=== PATIENT | female | born 1975 | race Caucasian/White ===

== ENCOUNTER 2018-04-23 11:48 | Outpatient (CLI) | payer BC ==
[~2018-04-23 11:48] MED LIST: DCS100C PO; FLUC200T45 PO; FRS325T PO; IBP800T PO; OXYC-272 PO; PREN1TAB39 PO
--- NOTE | 2018-04-23 12:00 | NUR ---
AJIT GLYNN presented to unit via AMB from HOME, accompanied by SPOUSE AND CHILD, FOR RHOGAM INJECTION AT 28 WEEKS. TO WAITING ROOM UNTIL RHOGAM READY.
--- NOTE | 2018-04-23 12:40 | NUR ---
RHOGAM 1 VIAL GIVEN IM IN RIGHT VG SITE. SITE CLEAR. DISMISSED AMB FROM WS IN STABLE CONDITION ACC BY SPOUSE AND DAUGHTER.
== END 2018-04-23 12:45 | disposition home or self-care (01) ==
LOC: WSo 11:48
PROVIDERS: ATTEND Obstetrics & Gynecology
DX: Z31.82 Encounter for Rh incompatibility status (principal)
CPT/HCPCS: 96372

== ENCOUNTER 2018-06-20 14:41 | Inpatient (IN) | payer BC ==
[~2018-06-20] VITALS: Ht 179.1 cm; Wt 75.5 kg
--- NOTE | 2018-06-20 14:30 | NUR ---
AJIT GLYNN Carlos presented to unit via AMBULATORY FROM OFFICE, accompanied by , with c/o CONTRACTIONS. AJIT GLYNN weighed, gowned, voided, and to bed. EFHM and TOCO applied, VS taken. AJIT GLYNN oriented to bed controls, call light, TV, heat, and A/C controls.
[2018-06-20 14:45] VITALS: BP 128/90
[2018-06-20 15:00] VITALS: BP 108/68
[2018-06-20] MEDS ORDERED: D5 LR IV SOLUTION 1,000 ML IV SCH (15:00)
[2018-06-20 15:11] LABS: BASOPHILS % (AUTO) 0 % (0-10); EOSINOPHILS # (AUTO) 0.1 10^3/uL (0.0-0.3); EOSINOPHILS % (AUTO) 1 % (0-10); HEMATOCRIT 29 % (35-52); HEMOGLOBIN 9.7 G/DL (11.5-16.0); LYMPHOCYTES # (AUTO) 1.3 X 10^3 (1.0-4.0); LYMPHOCYTES % (AUTO) 14 % (12-44); MEAN CORPUSCULAR HEMOGLOBIN 27 PG (25-34); MEAN CORPUSCULAR HGB CONC 33 G/DL (32-36); MEAN CORPUSCULAR VOLUME 80 FL (80-99); MEAN PLATELET VOLUME 9.9 FL (7.4-10.4); MONOCYTES # (AUTO) 0.6 X 10^3 (0.0-1.0); MONOCYTES % (AUTO) 7 % (0-12); NEUTROPHILS # (AUTO) 7.3 X 10^3 (1.8-7.8); NEUTROPHILS % (AUTO) 78 % (42-75); PLATELET COUNT 142 10^3/uL (130-400); RED CELL DISTRIBUTION WIDTH 14.2 % (10.0-14.5); WHITE BLOOD COUNT 9.3 10^3/uL (4.3-11.0)
--- NOTE | 2018-06-20 15:22 | NUR ---
DR SEGURA CALLED BY THIS RN WITH UPDATED PT REPORT. INITIAL ORDERS RECEIVED EARLIER BEFORE PT ARRIVAL, WITH NOTIFICATION OF ARRIVAL. THIS RN UPDATES ON REPORT: LAB RESULTS, UC IRREGULAR 2-10 MIN APART, PT STATING THAT THEY HAVE DEFINITELY SLOWED DOWN SINCE SHE HAS GOTTEN HERE. REPORT ON FHT STRIP, REACTIVE, GOOD/MODERATE VARIABILITY WITH ACCELS. RN GIVES REPORT ON URINE DIP RESULTS WELL. DR SEGURA WANTS TO CONTINUE ADMIN IV FLUIDS. WILL COME EVALUATE PT AFTER CLINIC THIS AFTERNOON- STATES HE HAS ABOUT 4-5 MORE PTS TO SEE AT THIS TIME. NO NEW ORDERS RECEIVED AT THIS TIME.
[2018-06-20 15:34] LABS: BAND NEUTROPHILS 0 %; BASOPHILS % (MANUAL) 0 %; EOSINOPHILS % (MANUAL) 0 %; LYMPHOCYTES % (MANUAL) 16 %; MONOCYTES % (MANUAL) 3 %; NEUTROPHILS % (MANUAL) 81 %; RBC MORPH NORMAL
--- NOTE | 2018-06-20 17:00 | NUR ---
rn having difficulty monitoring UC with TOCO, have readjusted several times. pt given marker button to push when uc begins
--- NOTE | 2018-06-20 17:35 | NUR ---
THIS RN CALLED DR SEGURA WITH UPDATED PT REPORT. UC PATTERN 3-6 MIN IRREGULAR. REACTIVE FHT. NO NEW ORDERS AT THIS TIME. DR SEGURA STATES HE WILL BE UP TO LD SHORTLY TO SEE PT.
--- NOTE | 2018-06-20 17:46 | NUR ---
DR SEGURA AT BEDSIDE ASSESSING PT. THIS RN UPDATES ON PT REPORT. REVIEWS FHT STRIP AND UC PATTERN. CALLS FOR C/S. THIS RN WILL CALL [facility] TO GET OR CREW AND CHAIN PULLER.
[2018-06-20] MEDS ORDERED: CITRIC ACID/SOB CIT (BICITRA) 30 ML UDC PO ONE (18:00)
[2018-06-20] MEDS ORDERED: METOCLOPRAMIDE INJ 10 MG/2 ML (REGLAN) IV ONE (18:00)
[2018-06-20] MEDS ORDERED: FAMOTIDINE 20MG/2ML IV (PEPCID) IV ONE (18:00)
[2018-06-20] MEDS ORDERED: CATHETER FLUSH 10 ML SYR IV PRN (18:00)
--- OUTSIDE RECORDS SUMMARY | 2018-06-20 18:05 | XMS REPORT ---
Author Author Migration, Doctor Organization [facility] Address Unknown Phone Unavailable Care Team Providers Care Supervisor Steffen House Name Role Phone Migration, Doctor Unavailable Unavailable PROBLEMS Type Condition ICD9-CM Code [id number] Code Onset Dates Condition Status SNOMED Code Problem Unspecified sleep disturbance 780.50 Active 21484900 Problem Influenza with other respiratory manifestations 487.1 Active 5086093 Problem Screening examination for pulmonary tuberculosis V74.1 Active 764449070 Problem Barotrauma, otitic 993.0 Active [id number] ALLERGIES No Information ENCOUNTERS Encounter Location Date Diagnosis [facility] [place] [id number], [place] [address] 14 Jun, 2014 [facility] [place] [id number] [place] [address] Jun, [facility] [place] [id number], [place] [address] Jun, [facility] [place] [id number] [address] Jun, [facility] [place] [address], [place] [address] Jun, [facility] [place] [address], [place] [address] Mar, [facility] [place] [address], [place] [address] Mar, [facility] [place] [id number] [address] Feb, [facility] [place] [id number] [place] [address] Feb, [facility] [place] [address], [place] [address] Feb, [facility] [place] [id number], [place] [address] Feb, [facility] [place] [address], [place] [address] Jan, [facility] [place] [address], [place] [address] Jan, [facility] [place] [address], [place] [address] Aug, [facility] [place] [address], [place] [address] Aug, [facility] [place] [address] [address] Jan, [facility] [place] [address], [place] [address] Dec, IMMUNIZATIONS No Known Immunizations SOCIAL HISTORY Never Assessed REASON FOR VISIT EMR-[facility] PLAN OF CARE VITAL SIGNS MEDICATIONS Medication Instructions Dosage Frequency Start Date End Date Duration Status Tamiflu 75 mg 1 capsule by Oral route 2 times per day for 5 day(s)drink plenty of fluids- Mar, Active Zofran ODT 4 mg take [address] on top of the tongue where it will dissolve, then swallow by Oral route every 8 hoursPRNNausea or Vomiting Mar, Active Ambien CR 6.25 mg take 1 tablet (6.25 mg) by oral route once daily at bedtime Jun, Active Naproxen 500 mg 1 tablet by Oral route 2 times per dayPRNpain, take with food Aug, Active tramadol 50 mg take 1 tablet to 2 tabs by Oral route every 8 hours as neededPRNpain Feb, Active Ativan 0.5 mg 1 tablet by Oral route every 8 hours PRN take prn for anxiety Jun, Active Albuterol Sulfate 2.5 mg /3 mL (0.083 %) 1 Each by Inhalation route every 6 hours for cough and wheezePRNfor wheezing or cough Mar, Active RESULTS No Results PROCEDURES No Known procedures INSTRUCTIONS MEDICATIONS ADMINISTERED No Known Medications
--- OUTSIDE RECORDS SUMMARY | 2018-06-20 18:05 | XMS REPORT ---
Author Author Giorgi Epps [facility] Address [address] [place], [place] [id number] Care Team Providers Care Gear Machinist Name Role Phone Giorgi Epps PCP Allergies and Adverse Reactions Name Reaction Notes No known drug allergy Plan of Treatment Not available. Medications Active Name Start Date Estimated Completion Date SIG Comments biotin oral Take 1 daily, OTC multivitamin oral tablet take 1 tablet by oral route daily ibuprofen 800 mg oral tablet take 1 tablet (800 mg) by oral route 4 times per day with food Bactrim DS 800-160 mg oral tablet 04/28/2017 take 1 tablet by oral route every 12 hours for 10 days Problem List Description Status Onset Cellulitis Active 04/29/2017 Vital Signs Date Time BP-Sys(mm[Hg] BP-Anju(mm[Hg]) HR(bpm) RR(rpm) Temp WT HT HC BMI BSA BMI Percentile O2 Sat(%) 04/28/2017 11:36:00 AM 129 mmHg 88 mmHg 92 bpm 20 rpm 98 F 144 lbs 71 in 20.08 kg/m2 1.81 m2 Social History Name Description Comments Tobacco Never smoker Alcohol Never History of Procedures Not available. Results Summary Not available. History Of Immunizations Not available. History of Past Illness Name Date of Onset Comments No significant medical history Cellulitis 04/29/2017 Cellulitis Apr 28 2017 11:47AM Payers Insurance Name Company Name Plan Name Plan Number Policy Number Policy Group [id number] History of Encounters Visit Date Visit Type Provider 04/28/2017 Procedures Giorgi Epps DO
[2018-06-20] MEDS ORDERED: OXYTOCIN/NORMAL SALINE 500 ML IV SCH (18:09)
[2018-06-20] MEDS ORDERED: metroNIDAZOLE 500MG/100ML IVPB 100 ML IV ONE (18:15)
[2018-06-20] MEDS ORDERED: TETANUS,DIPTH,PERTUSS P/F (BOOSTRIX) 0.5 ML VIAL IM SCH (18:15)
[2018-06-20] MEDS ORDERED: ONDANSETRON 4 MG/2 ML (SDV) Z0FRAN IVP PRN (18:15)
[2018-06-20] MEDS ORDERED: MEASLES,MUMPS,RUBELLA 1 EA INJ SC SCH (18:15)
[2018-06-20] MEDS ORDERED: ceFAZolin INJECTION 2,000 MG in WATER (STERILE) FOR INJECTION 10 ML IV ONE (18:15)
[2018-06-20] MEDS ORDERED: fentaNYL INJECTION 100 MCG/2 ML AMP ONE (18:21)
--- NOTE | 2018-06-20 18:23 | History & Physical ---
History and Physical Date Seen by Provider: Jun 20, 2018 Time Seen by Provider: 18:18 This patient is a 42-year-old 1 white female currently at 37 weeks gestation. She was seen in my clinic with complaint of severe and progressively increasing pain. She denied ruptured membranes or bleeding. She' s had 2 deliveries at and one at 38 weeks gestation. She indicates that this is what it felt like when she was in labor. She is being followed for oligohydramnios. She is planning on a repeat delivery. She has been hydrated and her contractions initially slowed down but now her initial level and/or worse per patient. Decision made to proceed with repeat C- section. NST performed in my clinic was reassuring except for early D cells with contractions. Patient complained of increased pain across the suprapubic pubis at the height of contractions. Allergies are none Medications are vitamins Medical social and surgical histories are per the antepartum record HEENT exam is normal Neck is supple no lymphadenopathy no thyromegaly Abdomen is gravid soft nontender nondistended. Fundal height is low for gestational age Extremities show no clubbing or cyanosis. There is no Homans sign. There is some pretibial pitting edema more on the left than on the right . Pelvic exam shows cervix that was closed and 70 percent effaced Laboratory Tests Test 06/20/18 15:00 Range/Units White Blood Count 9.3 4.3-11.0 10^3/uL Red Blood Count 3.64 L 4.35-5.85 10^6/uL Hemoglobin 9.7 L 11.5-16.0 G/DL Hematocrit 29 L 35-52 % Mean Corpuscular Volume 80 80-99 FL Mean Corpuscular Hemoglobin 27 25-34 PG Mean Corpuscular Hemoglobin Concent 33 32-36 G/DL Red Cell Distribution Width 14.2 10.0-14.5 % Platelet Count 142 130-400 10^3/uL Mean Platelet Volume 9.9 7.4-10.4 FL Neutrophils (%) (Auto) 78 H 42-75 % Lymphocytes (%) (Auto) 14 12-44 % Monocytes (%) (Auto) 7 0-12 % Eosinophils (%) (Auto) 1 0-10 % Basophils (%) (Auto) 0 0-10 % Neutrophils # (Auto) 7.3 1.8-7.8 X 10^3 Lymphocytes # (Auto) 1.3 1.0-4.0 X 10^3 Monocytes # (Auto) 0.6 0.0-1.0 X 10^3 Eosinophils # (Auto) 0.1 0.0-0.3 10^3/uL Basophils # (Auto) 0.0 0.0-0.1 10^3/uL Neutrophils % (Manual) 81 % Lymphocytes % (Manual) 16 % Monocytes % (Manual) 3 % Eosinophils % (Manual) 0 % Basophils % (Manual) 0 % Band Neutrophils 0 % Blood Morphology Comment NORMAL Assessment and plan 37 week gestation patient with 2 deliveries to appears to be in labor. Is concerning that she has had a for her last delivery decision is made to go ahead with repeat delivery now rather than tocolyse her for use pain medication for discomfort. heart rate tracing is reassuring but there have been early D cells and there is concern for uterine scar dehiscence 37 week gestation in labor with previous Allergies and Home Medications Allergies Coded Allergies: No Known Drug Allergies (Verified , 06/27/07) Home Medications Docusate Sodium 100 Mg Capsule, 100 MG PO BID, (Reported) Ferrous Sulfate 325 Mg Tablet, 1 TAB PO DAILY, (Reported) FOR 1 MONTH OR LONG YOU BREAST FEED Fluconazole 200 Mg Tablet, 1 EACH PO QOD FOR 3 DOSES, (Reported) EVERY OTHER DAY FOR 3 DOSES Ibuprofen 800 Mg Tab, 800 MG PO Q6H PRN, (Reported) NEEDED FOR CRAMPS Oxycodone Hcl/Acetaminophen 1 Tab Tablet, 1-2 TAB PO Q3H PRN, (Reported) NEEDED FOR PAIN Vits W-Ca,Fe,Fa(<1MG) 1 Each Tablet, 1 TAB PO DAILY, (Reported) FOR 1 MONTH OR LONG YOU BREAST FEED Patient Home Medication List Home Medication List Reviewed: Yes LAZARO SEGURA MD Jun 20, 2018 18:23
[2018-06-20] MEDS ORDERED: OXYC1TAB12 PO (18:25)
[2018-06-20] MEDS ORDERED: IBUP-1780 PO (18:25)
[2018-06-20] MEDS ORDERED: DOCU100C37 PO (18:25)
--- NOTE | 2018-06-20 18:27 | Discharge Instructions ---
Discharge Instructions Discharge Medications New, Converted or Re-Newed RX: RX on Chart Patient Instructions Patient Instructions: As directed Return to The Hospital For: As directed Activity & Diet Discharge Diet: No Restrictions Activity as Tolerated: No Orders-Post D/C & Referrals Follow Up Appt: RTC 1 week for incision check. Call to make follow up appt. for patient in 4 weeks. Wound Care: Remove angelia, apply benzoin and steri strips. Activity Per routine post instructions. Diet as tolerated Patient may shower or tub bathe as desired. Continue home meds LAZARO SEGURA MD Jun 20, 2018 18:27
[2018-06-20] MEDS ORDERED: OXYTOCIN/NORMAL SALINE 500 ML IV ONE ×2 (19:00→19:08)
[2018-06-20] MEDS ORDERED: ONDANSETRON 4 MG/2 ML (SDV) Z0FRAN ONE (19:00)
[2018-06-20] MEDS ORDERED: PHENYLEPHRINE 100 MCG/ML 10 ML (ANESTHESIA) SYR ONE (19:22)
[2018-06-20] MEDS ORDERED: ONDANSETRON 4 MG/2 ML (SDV) Z0FRAN IV PRN (19:30)
[2018-06-20] MEDS ORDERED: NALOXONE 0.4 MG/ML 1 ML (NARCAN) VIAL IV PRN (19:30)
[2018-06-20] MEDS ORDERED: diphenhydrAMINE 50 MG/ML INJ (BENADRYL) IV PRN (19:30)
[2018-06-20] MEDS ORDERED: PHYTONADIONE (VIT. K) NEONATAL 1 MG/0.5 ML AMP ONE (19:33)
[2018-06-20] MEDS: KETOROLAC 30 MG/ML VIAL IV SCH (19:40)
--- NOTE | 2018-06-20 20:20 | NUR ---
PT RECEIVED FROM RECOVERY. ASSESSMENT COMPLETED. PT DENIES ANY NEEDS AT THIS TIME. WILL CONTINUE TO MONITOR.
[2018-06-20 21:00] VITALS: BP 125/66
--- NOTE | 2018-06-20 22:32 | NUR ---
PT UP TO W'C AND TAKEN TO [facility] TO SEE NB.
[2018-06-20 23:00] VITALS: BP 130/76
--- NOTE | 2018-06-21 00:10 | OPERATIVE REPORT ---
DATE OF SERVICE: 06/20/2018 PREOPERATIVE DIAGNOSIS: Term at 37 weeks gestation and labor with oligohydramnios and severe abdominal pain. POSTOPERATIVE DIAGNOSIS: Term at 37 weeks gestation and labor with oligohydramnios and severe abdominal pain with pathology on the placenta pending. OPERATIVE PROCEDURE: Repeat low transverse delivery of a viable male infant with Apgars of 5 and 7 at 1 and 5 minutes respectively, weight of 5 pounds 15 ounces. Cord blood pH of 7.33 and a time of 19:05. OPERATIVE DESCRIPTION: With the patient in the supine position under satisfactory spinal analgesia, the patient was prepped and draped in usual fashion for abdominal surgery. Colon catheter was placed in the urinary bladder. A repeat Pfannenstiel incision was made through skin with a scalpel by removing the patient's previous Pfannenstiel incisional scar. The abdomen was entered in the usual manner. Bladder retractor placed into position and clean scalpel was used to make a 4 cm hysterotomy incision transversely across lower uterine segment that was extended by blunt dissection as well. The lower uterine segment was exceedingly thin. The period at least a third of the scar and although the membranes and peritoneum were intact Membranes were ruptured with an Allis clamp releasing a small amount of amniotic fluid. Stephen forceps were applied to facilitate the delivery of a male with stats as noted above. The was bulb suctioned on delivery of the head and again on completion of delivery. The umbilical cord was doubly clamped and cut and the passed to the pediatric nurse in attendance for delivery. Cord bloods were obtained. The placenta delivered spontaneously Marcos. It was normal, although somewhat bilobed, but had a 3-vessel cord. It was sent to pathology for permanent section. The uterus was exteriorized and interior wiped clean with a wet laparotomy sponge. Uterine incision then closed with a running locked suture of 2-0 Vicryl. Hemostasis was satisfactory. The uterus was returned to the abdominal cavity. All blood clot and debris removed from the abdominal cavity. With sponge, needle counts correct and hemostasis assured, the anterior parietal peritoneum was closed with running suture of 2-0 Vicryl. Rectus muscles were closed with 2-0 Vicryl. The rectus fascia was closed with 2-0 Vicryl, subcutaneous tissue was closed with 2-0 Vicryl and the skin was stapled. Sponge and needle counts were correct on completion of the delivery. Estimated blood loss was around 550 mL. The patient tolerated the procedure well and was transferred to recovery room in stable condition. The was taken stable to the full-term nursery under the care of the pediatric nurse. Job ID: [id number] DocumentID: [id number] Dictated Date: 06/20/2018 19:52:19 Teacher [employer] Date: 06/21/2018 00:09:31 Dictated By: LAZARO SEGURA MD MTDD
--- NOTE | 2018-06-21 00:25 | NUR ---
PT BACK TO ROOM FROM [facility]. PERICARE COMPLETED. PT DENIES ANY URGE TO VOID. WILL CONTINUE TO MONITOR. S/O AT BEDSIDE.
[2018-06-21] MEDS: oxyCODONE/APAP 10/325MG (PERCOCET 10) TABLET PO PRN ×2 (01:06→08:23)
[2018-06-21 02:20] VITALS: BP 132/82
[2018-06-21] MEDS: KETOROLAC 30 MG/ML VIAL IV SCH (02:20)
--- NOTE | 2018-06-21 02:23 | NUR ---
PT ASSISTED TO BATHROOM. POSITIVE VOID. PERICARE COMPLETED. PT ASSISTED BACK TO BED.
[2018-06-21] MEDS: DOCUSATE SODIUM 100 MG (COLACE) CAP PO SCH ×2 (02:49→08:21)
--- NOTE | 2018-06-21 05:40 | NUR ---
IV DC'D, DSRG REMOVED. OLD BLEEDING NOTED ON DRSG. BLOOD CLOT NOTED IN YESSENIA. NO ACTIVE BLEEDING NOTED. ABD PAD APPLIED.
[2018-06-21 06:36] VITALS: BP 135/79
--- NOTE | 2018-06-21 07:45 | NUR ---
DR. SEGURA HERE TO SEE PT. PLAN FOR DISCHARGE IF PT DESIRES R/T IN [facility].
[2018-06-21 08:00] VITALS: BP 135/87
--- NOTE | 2018-06-21 08:00 | NUR ---
A.M. ASSESSMENT COMPLETED. VSS. PREPARING TO ORDER BREAKFAST.
--- NOTE | 2018-06-21 08:07 | Progress Note-Standard ---
Standard Progress Note Progress Notes/Assess & Plan Date Seen by a Provider: Jun 21, 2018 Time Seen by a Provider: 08:06 Progress/Assessment & Plan This patient is without complaint. She is ablating, voiding, tolerating oral intake well has good pain control. She denies chest pain, denies shortness breath, denies nausea vomiting, denies headache. Patient is requesting discharge home. Her baby was transferred to [place] last evening. Vital Signs Date Time Temp Pulse Resp B/P (MAP) Pulse Ox O2 Delivery O2 Flow Rate FiO2 06/21/18 06:36 98.4 93 18 135/79 (97) Room Air 06/21/18 02:20 98.6 97 18 132/82 (99) Room Air 06/20/18 23:00 98.3 92 18 130/76 (94) Room Air 06/20/18 21:00 98.2 92 18 125/66 (85) Room Air 06/20/18 20:20 18 98 Room Air 06/20/18 20:20 Room Air 06/20/18 20:15 Room Air 06/20/18 20:10 18 98 Room Air 06/20/18 20:00 Room Air 06/20/18 20:00 18 100 Room Air 06/20/18 19:50 20 97 Room Air 06/20/18 19:45 Room Air 06/20/18 19:40 20 97 Room Air 06/20/18 19:29 Room Air 06/20/18 19:29 20 97 Room Air 06/20/18 17:00 98.7 06/20/18 15:00 102 108/68 (81) Room Air 06/20/18 14:45 99.4 115 18 128/90 (103) 98 Room Air I & O 06/21/18 07:00 Intake Total 710 ml Output Total 2100 ml Balance -1390 ml Vital signs are stable. Patient is afebrile. Assessment and plan postoperative day number 1 status post repeat delivery at 37 weeks gestation. Plan is for discharge home with follow-up in clinic Final Diagnosis 37 week repeat delivery LAZARO SEGURA MD Jun 21, 2018 08:07
[2018-06-21] MEDS ORDERED: IBUPROFEN 800 MG (MOTRIN) TAB PO ONE (08:18)
[2018-06-21] MEDS ORDERED: diphenhydrAMINE 25 MG TAB (BENADRYL) PO ONE (08:19)
[2018-06-21] MEDS ORDERED: diphenhydrAMINE 25 MG TAB (BENADRYL) PO PRN (08:30)
--- NOTE | 2018-06-21 09:02 | Anesthesia-Regional Post-Op ---
Regional Patient Condition Mental Status: Alert, Oriented x3 Circulation: Same as Pre-Op Headache: Absent Sensation: Full Recovery Motor Block: Absent Post Op Complications Complications None Follow Up Care/Instructions Patient Instructions None needed. Anesthesia/Patient Condition Patient is doing well, no complaints, stable vital signs, no apparent adverse anesthesia problems. No complications reported per nursing. GAMAL LEWIS CRNA Jun 21, 2018 09:02
--- NOTE | 2018-06-21 10:00 | NUR ---
SHOWERED WITHOUT PROBLEMS. MOVING WELL.
[2018-06-21 12:00] VITALS: BP 128/74
--- NOTE | 2018-06-21 12:20 | NUR ---
DISCHARGE INSTRUCTIONS REVIEWED WITH COPY TO PT. RXS GIVEN. STATES UNDERSTANDING OF ALL INSTRUCTIONS AND NEED TO F/U INSTRUCTED AND NEEDED.
--- NOTE | 2018-06-21 12:30 | NUR ---
DISMISSED AMB FROM WS IN STABLE CONDITION TO FAMILY CAR ACC BY BHAVANA BRYAN.
[2018-06-21] MEDS ORDERED: IBUPROFEN 800 MG (MOTRIN) TAB PO SCH (18:15)
== END 2018-06-21 12:30 | disposition home or self-care (01) | DRG 788 ==
LOC: WSo 14:41 → LDRP 14:42 → WSo 17:52 → LDRP 17:52
PROVIDERS: ADMIT Obstetrics & Gynecology; ATTEND Obstetrics & Gynecology
PROC: 10D00Z1 Extraction of Products of Conception, Low, Open Approach (ICD-10-PCS; principal; 2018-06-20 18:36)
DX: O41.03X0 Oligohydramnios, third trimester, not applicable or unspecified (principal); O34.211 Maternal care for low transverse scar from previous cesarean delivery; Z3A.37 37 weeks gestation of pregnancy; Z37.0 Single live birth
CPT/HCPCS: 36415; 85007; 85027; 86850; 86900; 86901; 87081; 94664